=== PATIENT | male | born 1990 | race Caucasian/White ===

== ENCOUNTER 2016-08-18 03:20 | Emergency (ER) | payer OTHER ==
[2016-08-18] MEDS: Ketorolac INJ* 60 MG/2 ML VIAL IM ONE ×2 (04:09→04:11)
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
[2016-08-18] MEDS ORDERED: Ibuprofen TAB* 800 MG PO ONE ×2 (04:41→04:43)
[2016-08-18 04:45] VITALS: BP 126/92
--- NOTE | 2016-08-18 15:13 | RAD ---
HISTORY: Chest pain COMPARISONS: January 30, 2014 VIEWS: 2: Frontal dual-energy and lateral views of the chest. FINDINGS: CARDIOMEDIASTINAL SILHOUETTE: The cardiomediastinal silhouette is normal. ISRRAEL: The isrrael are normal. PLEURA: The costophrenic angles are sharp. No pleural abnormalities are noted. LUNG PARENCHYMA: The lungs are clear. ABDOMEN: The upper abdomen is clear. There is no subphrenic gas. BONES AND SOFT TISSUES: No bone or soft tissue abnormalities are noted. OTHER: None. IMPRESSION: NO ACTIVE CARDIOPULMONARY DISEASE.
== END 2016-08-18 04:45 | disposition home or self-care (01) ==
LOC: ED 03:20
DX: T14.8 Other injury of unspecified body region (principal); R07.9 Chest pain, unspecified; Y09 Assault by unspecified means; R51 Headache; Z87.891 Personal history of nicotine dependence
CPT/HCPCS: 71020; 93005; 99282; A9270-GY; J1885

== ENCOUNTER 2016-09-14 18:09 | Emergency (ER) | payer OTHER ==
--- NOTE | 2016-09-14 19:59 | RAD ---
INDICATION: Traumatic fracture right hand COMPARISON: None TECHNIQUE: AP, lateral, and oblique views were obtained. FINDINGS: There is a mildly displaced, intra-articular fracture involving the base of fifth metacarpal with comminution. There are no other fractures. There is soft tissue swelling about the fracture site. The articular relationships are maintained IMPRESSION: FIFTH METACARPAL FRACTURE DESCRIBED.
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
[2016-09-14] MEDS ORDERED: oxyCODONE TAB* 5 MG TAB PO ONE (20:34)
[2016-09-14] MEDS ORDERED: Ibuprofen TAB* 800 MG PO ONE (20:34)
[2016-09-14 20:59] VITALS: BP 117/90
== END 2016-09-14 20:57 | disposition home or self-care (01) ==
LOC: ED 18:09
DX: S62.316A Displaced fracture of base of fifth metacarpal bone, right hand, initial encounter for closed fracture (principal); W17.89XA Other fall from one level to another, initial encounter; Y93.89 Activity, other specified; Y92.9 Unspecified place or not applicable; K21.9 Gastro-esophageal reflux disease without esophagitis
CPT/HCPCS: 29125; 99282; A9270-GY

== ENCOUNTER 2016-11-16 17:12 | Emergency (ER) | payer OTHER ==
[2016-11-16 17:22] VITALS: BP 122/71
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
[2016-11-16] MEDS ORDERED: Ketorolac INJ* 60 MG/2 ML VIAL IM ONE (18:07)
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
--- NOTE | 2016-11-16 18:51 | RAD ---
INDICATION: Back pain. Fall. COMPARISON: Lumbar spine December 23, 2013 TECHNIQUE: Routine PA, lateral, and oblique imaging was performed . FINDINGS: Bones: There are no acute bony findings. There are no significant osteoarthritic findings. Alignment: Normal Disc spaces: The disc spaces are well-maintained Soft tissues: There are no soft tissue abnormalities. IMPRESSION: NEGATIVE EXAMINATION
== END 2016-11-16 19:00 | disposition home or self-care (01) ==
LOC: ED 17:12
DX: S62.306S Unspecified fracture of fifth metacarpal bone, right hand, sequela (principal); W22.8XXS Striking against or struck by other objects, sequela; M54.9 Dorsalgia, unspecified; K21.9 Gastro-esophageal reflux disease without esophagitis; H54.42 Blindness, left eye, normal vision right eye; Z88.6 Allergy status to analgesic agent; Z87.891 Personal history of nicotine dependence
CPT/HCPCS: 72110; 96372; 99282; J1885

== ENCOUNTER 2016-11-23 00:16 | Emergency (ER) | payer OTHER ==
[2016-11-23 00:32] VITALS: BP 120/87
[2016-11-23] MEDS ORDERED: Dexamethasone IV* 4 MG/ML 1 ML (4 MG) IV SLOW PU ONE (02:00)
== END 2016-11-23 01:30 | disposition left against medical advice (07) ==
LOC: ED 00:16
DX: M54.5 Low back pain (principal); Z53.21 Procedure and treatment not carried out due to patient leaving prior to being seen by health care provider

== ENCOUNTER 2017-04-07 20:42 | Emergency (ER) | payer SELFPAY ==
[2017-04-07] MEDS ORDERED: NS 0.9% 1000 ML* 1,000 ML IV ONE (20:55)
[2017-04-07 21:20] LABS: Hematocrit 44 % (42-52); Hemoglobin 15.3 g/dl (14.0-18.0); Mean Corpuscular HGB Conc 35 g/dl (31-36); Mean Corpuscular Hemoglobin 32 pg (27-31); Mean Corpuscular Volume 91 fL (80-94); Mean Platelet Volume 7 um3 (7.4-10.4); Red Blood Count 4.78 10^6/ul (4.0-5.4); Red Cell Distribution Width 13 % (10.5-15); White Blood Count 6.8 10^3/ul (3.5-10.8)
[2017-04-07 21:38] LABS: ALT 22 U/L (7-52); AST 20 U/L (13-39); Albumin 4.1 g/dL (3.2-5.2); Alkaline Phosphatase 56 U/L (34-104); Anion Gap 5 mmol/L (2-11); Blood Urea Nitrogen 12 mg/dL (6-24); CO2 Carbon Dioxide 26 mmol/L (22-32); Calcium 9.1 mg/dL (8.6-10.3); Chloride 107 mmol/L (101-111); EGFR African American 115.3 (>60); EGFR Non-African American 89.6 (>60); Globulin 2.3 g/dL (2-4); Glucose 73 mg/dL (70-100); Potassium 3.7 mmol/L (3.5-5.0); Sodium 138 mmol/L (133-145); Total Protein 6.4 g/dL (6.4-8.9)
[2017-04-07] MEDS ORDERED: Naloxone* 0.4 MG/ML 1 ML VIAL IV PUSH ONE (21:53)
[2017-04-07 21:54] LABS: Acetaminophen < 15 mcg/mL; Alcohol < 10 mg/dL (<10); Salicylate < 2.50 mg/dL (<30)
[2017-04-07 22:09] LABS: TSH (Thyroid Stimulating Horm) 2.19 mcIU/mL (0.34-5.60)
[2017-04-07] MEDS ORDERED: Naloxone* 0.4 MG/ML 10 ML VIAL ONE (22:19)
[2017-04-08 00:52] LABS: Urine Bilirubin Negative (Negative); Urine Glucose Negative (Negative); Urine Nitrite Negative (Negative)
[2017-04-08 01:12] LABS: Benzodiazepine Urine Screen None Detected (None Detect)
[2017-04-08 07:02] VITALS: BP 130/81
--- NOTE | 2017-04-08 07:45 | RAD ---
INDICATION: Confusion. Fall. COMPARISON: None TECHNIQUE: Noncontrast axial source images were acquired from the skull base to the vertex. FINDINGS: Ventricles/sulci: The ventricles and cisterns are normal in size and configuration for age. Brain parenchyma: There is no focal parenchymal finding, evidence of intracranial mass, or intracranial mass effect. Intracranial hemorrhage:None. Extra-axial spaces: There are no abnormal extra axial fluid collections or evidence of extra-axial mass. Calvarium: There is no calvarial fracture or other calvarial abnormality. Scalp: There is no evidence of scalp or extracalvarial soft tissue abnormality. Paranasal sinuses/mastoid: The paranasal sinuses and mastoid air cells are clear. Other: None. IMPRESSION: No acute intracranial findings
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
== END 2017-04-08 03:02 | disposition home or self-care (01) ==
LOC: ED 20:42
DX: T40.601A Poisoning by unspecified narcotics, accidental (unintentional), initial encounter (principal); R11.10 Vomiting, unspecified; Y92.9 Unspecified place or not applicable; R41.0 Disorientation, unspecified
CPT/HCPCS: 36415; 70450; 80053; 80307; 80320; 80329; 81003; 84443; 85025; 96374; 99284; G0480; J2310

== ENCOUNTER 2017-12-16 11:47 | Emergency (ER) | payer OTHER ==
[2017-12-16 11:51] VITALS: BP 128/72
[2017-12-16] MEDS ORDERED: Tetan/Diph/Pertus SYR(Tdap)* 0.5 ML SYR(BOOSTRIX) use SYR IM ONE (12:08)
[2017-12-16] MEDS ORDERED: Ibuprofen TAB* 800 MG PO ONE (12:39)
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
== END 2017-12-16 14:49 | disposition home or self-care (01) ==
LOC: ED 11:47
DX: S01.81XA Laceration without foreign body of other part of head, initial encounter (principal); W22.8XXA Striking against or struck by other objects, initial encounter; Y92.9 Unspecified place or not applicable; Z23 Encounter for immunization
CPT/HCPCS: 12051; 90471; 90715; 99282; A9270-GY

== ENCOUNTER 2018-01-07 21:33 | Emergency (ER) | payer MEDICAID ==
[2018-01-07 21:57] VITALS: BP 0/0
--- NOTE | 2018-01-07 22:05 | ED ---
Cardiac Resuscitation - HPI Summary HPI Summary: This is scribe, Triston Ashton, documenting for attending Dr. Jossue MD. LEVEL 5 CAVEAT: HPI LIMITED DUE TO PT CONDITION, UNRESPONSIVE. Pt is a 27/yo M BIBA ALS presenting after cardiac arrest. Per EMS, pt given Narcan, 2 epi, sodium bicarb en route. Pt was pronounced at bedside at 2134. I, Dr. Marcum, personally performed the services described in this documentation as scribed in my presence and it is both accurate and complete. - History of Current Complaint Chief Complaint: EDCardiacArrest Stated Complaint: ABC Hx Obtained From: EMS - Allergies/Home Medications Allergies/Adverse Reactions: Allergies Allergy/AdvReac Type Severity Reaction Status Date / Time acetaminophen [From Tylenol] Allergy Nausea Verified 12/16/17 11:52 Hersheys Chocolate AdvReac Mild Vomiting Uncoded 04/07/17 20:47 - Past Medical History Past Medical History: Unobtainable Due to Extremis - LEAVE 5 CAVEAT - Family History Family History: Unobtainable Due to Extremis - LEVEL 5 CAVEAT - Social History Social History: Unobtainable Due to Extremis - LEVEL 5 CAVEAT - Review of Systems Review of Systems: Unobtainable Due to Extremis - LEVEL 5 CAVEAT Physical Examination - Summary Physical Exam Summary: LEVEL 5 CAVEAT: PE LIMITED DUE TO PT CONDITION, UNRESPONSIVE. Pt is lying motionless on the stretcher. R pupil is dilated and fixed. Pt is non -responsive. No reflexive movements. No pulses anywhere. No respiratory effort. No external signs of trauma. Diagnostics - Vital Signs Vital Signs Temp Pulse Resp BP Pulse Ox 01/07/18 21:57 0 01/07/18 21:33 96.5 F 0 0 0/0 0 - Laboratory Lab Statement: Any lab studies that have been ordered have been reviewed, and results considered in the medical decision making process. Cardiac Resus. Course/Dx - Diagnoses Provider Diagnoses: Heroin overdose During the Visit The Following Alert/Code Occurred: ABC Alert - 21:23 - Provider Notifications Discussed Care Of Patient With: Yany Nunn - clinical laboratory medical director Time Discussed With Above Provider: 22:37 Instructed by Provider To: Other - Will accept case and complete certificate on 01/10/17. Discharge - Sign-Out/Discharge Documenting (check all that apply): Patient Departure - - Discharge Plan Condition: Stable Disposition: Referrals: No Primary Care Phys,NOPCP [Primary Care Provider] - - Billing Disposition and Condition Condition: STABLE Disposition:
== END 2018-01-07 21:34 | disposition expired ==
LOC: ED 21:33
DX: T40.1X1A Poisoning by heroin, accidental (unintentional), initial encounter (principal); I46.8 Cardiac arrest due to other underlying condition; Y92.9 Unspecified place or not applicable; Z88.6 Allergy status to analgesic agent
CPT/HCPCS: 99285